=== PATIENT | male | born 1955 | race Caucasian/White ===

== ENCOUNTER 2016-07-26 08:22 | Emergency (ER) | payer BC ==
--- NOTE | 2016-07-26 09:11 | ERNOTE ---
Back Pain ER HPI Date of Service: 07/26/16 Time Seen by Provider: 07/26/16 09:06 Immunizations: IMMUNIZATION HX History of Influenza Vaccine Yes Hx Pneumococcal Vaccination Yes Allergies/Adverse Reactions: Allergies No Known Allergies Allergy (Verified 07/26/16 08:38) Home Medications: HOME MEDICATIONS HYDROcodone/ACETAMINOPHEN [Lortab 7.5-325 mg Tablet] 1 each PO Q6H PRN #20 tablet 07/26/16 [Last Taken Unknown] Ondansetron [Zofran Odt] 4 mg PO Q6H PRN #10 tab 07/26/16 [Last Taken Unknown] Tamsulosin HCl [Flomax] 0.4 mg PO DAILY@1800 #14 capsule 07/26/16 [Last Taken Unknown] Narrative: CC = R FLANK PAIN REMINISCENT OF RENAL STONES HE HAS HAD IN THE PAST. started about 0600 this am upon awakening. some nausea. NO VOMITING . NO FEVER. CAN'T GET COMFORTABLE. NO HX OF ANY TRAUMA. NOT WORSE WITH ANY PALPATION OR CHANGE IN POSITION. HAS NOT TAKEN ANYTHING FOR IT. SAYS HIS URINE DID SEEM DARKER LAST NIGHT BUT HASN'T BEEN ABLE TO GO THIS AM. Review of Systems - Review of Systems Constitutional: Present: See HPI EYE: Present: no symptoms reported ENT: Present: no symptoms reported Respiratory: Present: no symptoms reported Cardiology: Present: no symptoms reported Gastrointestinal/Abdominal: Present: nausea Genitourinary: Present: See HPI, decreased urinary output Musculoskeletal: Present: back pain - RIGHT FLANK PAIN Skin: Present: no symptoms reported Neurological: Present: no symptoms reported Endocrine: Present: no symptoms reported Hematologic/Lymphatic: Present: no symptoms reported Psych: Present: no symptoms reported All Other Systems: All systems neg except as marked - Patient's Past Medical History Patient History - Medical: No pertinent hx, Other - RENAL STONE X 1 17 YRS AGO. Patient History - Cardiac/Respiratory: No pertinent hx Patient History - Cancer: No Hx of Cancer Patient History - Other: None - Social History Living Situations: home Psych History: No pertinent hx Alcohol Use: none Drug Use: none - Immunizations Hx Pneumococcal Vaccination: Yes History of Influenza Vaccine: Yes Physical Exam - Physical Exam General Appearance: Present: wd/wn, alert, moderate distress Respiratory: Present: no respiratory distress, normal breath sounds, no accessory muscle use, chest nontender, lungs clear Cardiovascular/Chest: Present: regular rate, rhythm, no murmur, normal peripheral pulses Gastrointestinal/Abdominal: Present: normal bowel sounds, nontender, nondistended, no organomegaly Back Exam: Present: normal inspection, normal range of motion, no CVA tenderness , no vertebral tenderness, other - PT WITH NO PAIN TO PALPATION OR MOVEMENT BUT SAYS IT HURTS IN HIS RIGHT FLANK BUT NOT REPRODUCIBLE ON EXAM. Neurological Exam: Present: alert, oriented Skin Exam: Present: normal color, warm/dry. Absent: skin rash ED Progress - Results and Orders Patient's Lab Results:: I have reviewed the patient's lab results. Results and Orders: BLOOD WORK IS NORMAL. UA = + FOR RBC AND 1 + BACT BUT CULTURE NOT INDICATED BY LAB CRITERIA, I WILL ADD ONE ANYWAY. - Vital Signs Vital Signs: Vital Signs 07/26/16 08:33 Temperature 36.3 C L Pulse Rate 78 Respiratory 12 Rate Blood Pressure 126/103 O2 Sat by Pulse 98 Oximetry - CT/Ultrasound CT/Ultrasound Narrative: READ BY RAD. = 5MM OBSTRUCTING LEFT PROXIMAL URETERAL STONE WITH HYDRONEPHROSIS AND STRANDING. THERE IS NON OBSTRUCTING `1 MM RIGHT RENAL LOWER POLE STONE ALSO - Progress/Reassessment Chief Complaint: Back Pain Progress:: Improved Departure Clinical Impression: Ureteral stone with hydronephrosis - Departure Disposition: Home Follow Up Needed Condition: Fair Instructions: Kidney Stones, [id number] Additional Instructions: CALL DR BERKOWITZ OFFICE FOR AN APPOINTMENT TO FOLLOW UPTHE PROGRESS OF YOUR STONE. RETURN TO THE ER IF WORSE BEFORE YOUR RECHECK. TAKE THE MEDS DIRECTED. YOU HAVE A 5 MM STONE THAT IS OBSTRUCTED IN THE LEFT UPPER URETER SO STILL HAS SOME DISTANCE TO TRAVEL. Referrals: Cade Read DO [Primary Care Provider] - Vern Berkowitz MD [Associate] - Prescriptions: HYDROcodone/ACETAMINOPHEN [Lortab 7.5-325 mg Tablet] 1 each PO Q6H PRN #20 tablet PRN Reason: Pain Ondansetron [Zofran Odt] 4 mg PO Q6H PRN #10 tab PRN Reason: Vomiting Tamsulosin HCl [Flomax] 0.4 mg PO DAILY@1800 #14 capsule
[2016-07-26] MEDS ORDERED: NORMAL SALINE 1,000 ML IV ONE (09:24)
[2016-07-26] MEDS ORDERED: KETOROLAC TROMETHAMINE 30 MG/ML VIAL IV ONE ×2 (09:24→11:11)
[2016-07-26] MEDS ORDERED: TAMSULOSIN HCL 0.4 MG CAP.SR.24H PO ONE ×2 (09:24→09:40)
[2016-07-26] MEDS ORDERED: ONDANSETRON HCL/PF 2 MG/ML VIAL IV ONE (09:24)
[2016-07-26 09:37] LABS: Hematocrit 43.3 % (42.0-52.0); Hemoglobin 14.3 gm/dL (13.5-18.0); Mean Cell Volume 88.9 fl (78-100); Mean Corpuscular Hemoglobin 29.4 pg (27-31); Neutrophil # 6.9 K/mm3 (1.3-6.0); Neutrophil % 72.5 % (42-75.0); Platelet Count 266 K/mm3 (150-450); Red Blood Count 4.87 M/mm3 (4.7-6.0); Red Cell Distribution Width 12.8 % (11.5-14.0); White Blood Count 9.5 K/mm3 (4.0-10.5)
[2016-07-26] MEDS ORDERED: ONDANSETRON HCL/PF 2 MG/ML VIAL ONE (09:39)
[2016-07-26] MEDS ORDERED: KETOROLAC TROMETHAMINE 30 MG/ML VIAL ONE ×2 (09:40→11:13)
[2016-07-26 09:58] LABS: Anion Gap 14.7 mmol/L (6.8-13.8); BUN/Creatinine Ratio 17.3 (9.0-21.6); Carbon Dioxide 25.4 mmol/L (24-32.6); Estimated Creat Clear 64.1; Potassium 4.1 mmol/L (3.4-4.6)
[2016-07-26 11:59] LABS: Urine Bilirubin Negative (NEGATIVE); Urine Blood 250 /ul (NEGATIVE); Urine Ketone Negative (NEGATIVE); Urine Nitrite Negative (NEGATIVE); Urine Protein 15 mg/dL (NEGATIVE); Urine Specific Gravity 1.025 SP.GR. (1.005-1.030); Urine Urobilinogen Normal (NORMAL)
[2016-07-26 12:18] LABS: Urine Appearance Clear; Urine Bacteria 1+; Urine Color Yellow; Urine WBC 0-5 /hpf (0-5)
[2016-07-26 13:03] VITALS: BP 148/81
== END 2016-07-26 13:05 | disposition home or self-care (01) ==
LOC: ER 08:22
DX: N13.2 Hydronephrosis with renal and ureteral calculous obstruction (principal)